=== PATIENT | female | born 1945 | race African-American/Black ===

== ENCOUNTER 2016-10-08 12:16 | Inpatient (IN) ==
--- NOTE | 2016-10-08 12:21 | Emergency Department Note ---
Disposition Clinical Impression: Asthma with exacerbation, Influenza A, Hypoxemia, Tachycardia, Elevated blood pressure reading, Diabetes, Frail elderly Disposition: Admitted As Inpatient Referrals: Bob Stokes Jr, MD [Primary Care Provider] - Forms: ED Satisfaction Letter General Adult HPI - General Chief complaint: ED Shortness of Breath/Dyspnea Stated complaint: YARA - History of Present Illness HPI Narrative: 70-year-old female reports emergency department complaining of difficulty in breathing. The patient has known history of asthma and does not usually require oxygen. The patient reports that she was at work and was exposed to irritant smokey smells on more than one occasion and had recurrent wheezing. The patient denies chest pain. She has had no abdominal pain vomiting or diarrhea. No leg swelling or pain coughing up blood or syncope. The patient has no history of CAD PE or cancer. No history of DVT or CHF. Patient has been taking her breathing medications but has not been fully effective. On arrival the patient's room air saturations were around 93%. The patient has had no urinary symptoms, no back pain. Ears no history of confusion, no unilateral arm weakness or numbness. No trouble walking talking hearing seeing or speaking, no rashes confusion or dysarthria. She has had a cough and some nasal congestion. No history of headache. She has a history of hypertension hyperlipidemia and diabetes. - Related Data Previous Rx's Medication Instructions Recorded Albuterol Neb [Proventil Neb] 2.5 mg IH Q4HR #90 vial.neb 03/07/15 Azithromycin [Zithromax] 250 mg PO DAILY #4 tablet 03/07/15 PredniSONE 10 mg PO DAILY #39 tablet 03/07/15 Allergies Allergy/AdvReac Type Severity Reaction Status Date / Time No Known Allergies Allergy Verified 03/06/15 20:35 All systems ED: reviewed and negative except as stated. Past Medical History - Past Medical History Medical history: Reports: asthma, diabetes, hyperlipidemia, hypertension Surgical history: Reports: cholecystectomy Psychiatric history: Reports: no psych history - Social History Smoking Status: Never smoker Smokeless Tobacco Status: No Alcohol use: Reports: none Drug use: Reports: none Physical Exam - General Limitations: no limitations General appearance: alert, in no apparent distress - Head Head exam: atraumatic, normocephalic, normal inspection - Eye Eye exam: Present: normal appearance, PERRL, EOMI - ENT ENT exam: normal exam, normal oropharynx, mucous membranes moist, TM's normal bilaterally, normal external ear exam - Neck Neck exam: Present: normal inspection, full ROM, trachea midline - Chest Chest inspection: Present: symmetric chest wall rise. Absent: tenderness - Respiratory Respiratory exam: Present: prolonged expiratory phase. Absent: respiratory distress, stridor, accessory muscle use - Cardiovascular Cardiovascular exam: Present: normal rhythm, tachycardia - Abdominal Exam Abdominal exam: Present: soft, Non-Tender, normal bowel sounds. Absent: tenderness, distention, guarding, rebound, rigidity, pulsatile mass - Extremities Exam Extremities exam: Present: normal inspection, full ROM, normal capillary refill. Absent: tenderness, pedal edema, joint swelling, calf tenderness - Expanded Lower Extremity Exam Neurovascular/Tendon exam: Absent: motor deficit, sensory deficit, tendon deficit, extremity cold to touch, pallor - Back Exam Back exam: Present: normal inspection, full ROM. Absent: tenderness, CVA tenderness (R), CVA tenderness (L), vertebral tenderness - Neurological Exam Neurological exam: Present: alert, oriented X3, CN II-XII intact. Absent: motor sensory deficit - Psychiatric Psychiatric exam: Present: normal affect, normal mood - Skin Skin exam: Present: warm, dry, intact, normal color. Absent: rash, cyanosis, diaphoresis, erythema, pallor, mottled Course Vital Signs Temperature 100.3 F H 10/08/16 12:17 Pulse Rate 112 10/08/16 12:17 Respiratory Rate 20 10/08/16 12:17 Blood Pressure 147/110 10/08/16 12:17 O2 Sat by Pulse Oximetry 93 L 10/08/16 12:17 Temperature 100.3 F H 10/08/16 12:17 Pulse Rate 106 10/08/16 12:23 Respiratory Rate 20 10/08/16 12:47 Blood Pressure 147/110 10/08/16 12:23 O2 Sat by Pulse Oximetry 97 10/08/16 12:47 Oxygen Delivery Oxygen Delivery Nasal Cannula Medical Decision Making - [facility] Narrative Medical decision making narrative: The patient is elderly with a history of asthma and diabetes. Her flu a test came back positive. She was given Solu-Medrol and a DuoNeb. Oxygen was also supplied. The patient's oxygen saturations on room air were 93%. She does not usually require oxygen. She was tachycardic with an element of tachypnea and persistent wheezing. A second DuoNeb was ordered. She has been taking her medication outpatient without relief. Based on the patient's apparent hypoxemia , tachycardia, age, acute influenza, comorbidities including diabetes, as well as a history of asthma and apparent outpatient failure on home therapy, I thought it would appropriate to admit the patient to the hospital. I discussed case with the hospitalist on-call who has accepted the patient to their care. The patient is currently stable pending admission. - Lab Data Lab results reviewed: Yes I reviewed the patient's lab results. Result diagrams: 10/08/16 12:41 10/08/16 12:41 Lab Results 10/08/16 10/08/16 10/08/16 Range/Units 12:41 12:41 12:41 WBC 9.7 (4.3-11.1) K/mcL RBC 4.33 (3.82-4.97) M/mcL Hgb 12.2 (11.5-15.4) g/dL Hct 36.7 (35.3-44.9) % MCV 84.8 (83.0-100.0) fL MCH 28.2 (28.0-33.3) pg MCHC 33.2 (31.6-35.5) g/dL RDW 12.6 (11.5-14.5) % Plt Count 299 (140-400) K/mcL MPV 9.5 (9.4-12.4) fL Immature Gran % 0.6 (0-4) % Seg Neutrophils % 70.8 % Lymphocytes % 14.9 % Monocytes % 11.0 % Eosinophils % 2.3 % Basophils % 0.4 % Neutrophils # 6.9 (1.6-8.9) K/mcL Lymphocytes # 1.5 (0.6-4.6) K/mcL Monocytes # 1.1 (0.0-1.3) K/mcL Eosinophils # 0.2 (0.0-0.6) K/mcL Basophils # 0.0 (0.0-0.2) K/mcL Immature Plt Fraction 2.4 (1.1-6.1) % PT (9.4-12.1) Seconds INR APTT (26.0-36.0) Seconds Sodium 138 (136-145) mEq/L Potassium 3.5 (3.5-4.5) mEq/L Chloride 101 (98-109) mEq/L Carbon Dioxide 26 (19-29) mEq/L BUN 14 (7-20) mg/dL Creatinine 0.96 (0.57-1.11) mg/dL Est GFR ( Amer) > 60 (> 60) Est GFR (Non-Af Amer) 57 L (> 60) BUN/Creatinine Ratio 15 (6-26) Glucose 151 H (70-99) mg/dL Calculated Osmolality 289 (280-300) Lactic Acid 1.2 (0.5-2.2) mmol/L Calcium 10.0 (8.6-10.8) mg/dL Total Bilirubin 0.5 (0.2-1.2) mg/dL Direct Bilirubin 0.2 (0.0-0.5) mg/dL Indirect Bilirubin 0.3 (0.0-1.2) mg/dL AST 23 (5-34) Units/L ALT 17 (0-55) Units/L Alkaline Phosphatase 63 (38-126) Units/L Troponin I (0-0.03) ng/mL C-Reactive Protein (Less than 5) mg/L B-Natriuretic Peptide (0-100) pg/mL Serum Total Protein 7.7 (6.0-8.3) g/dL Albumin 3.9 (3.5-5.0) g/dL Globulin 3.8 H (2.4-3.5) g/dL Albumin/Globulin Ratio 1.0 L (1.1-2.2) Urine Color (Yellow) Urine Clarity (Clear) Urine pH (5.0-8.0) pH Units Ur Specific [place] (1.010-1.025) Urine Protein (Neg-Trace) mg/dL Urine Glucose (UA) (Normal) mg/dL Urine Ketones (Negative) mg/dL Urine Blood (Negative) Urine Nitrite (Negative) Urine Bilirubin (Negative) Urine Urobilinogen (Normal) mg/dL Ur Leukocyte Esterase (Negative) Urine Microscopic RBC (0-3) per hpf Urine Microscopic WBC (0-3) per hpf Ur Squamous Epith Cells (None-Few) per lpf Urine Bacteria (None-Few) per hpf Hyaline Casts (None-Few) per lpf Ur Culture Indicated? (NO) 10/08/16 10/08/16 10/08/16 Range/Units 12:41 12:41 12:41 WBC (4.3-11.1) K/mcL RBC (3.82-4.97) M/mcL Hgb (11.5-15.4) g/dL Hct (35.3-44.9) % MCV (83.0-100.0) fL MCH (28.0-33.3) pg MCHC (31.6-35.5) g/dL RDW (11.5-14.5) % Plt Count (140-400) K/mcL MPV (9.4-12.4) fL Immature Gran % (0-4) % Seg Neutrophils % % Lymphocytes % % Monocytes % % Eosinophils % % Basophils % % Neutrophils # (1.6-8.9) K/mcL Lymphocytes # (0.6-4.6) K/mcL Monocytes # (0.0-1.3) K/mcL Eosinophils # (0.0-0.6) K/mcL Basophils # (0.0-0.2) K/mcL Immature Plt Fraction (1.1-6.1) % PT 12.9 H (9.4-12.1) Seconds INR 1.2 APTT 34.0 (26.0-36.0) Seconds Sodium (136-145) mEq/L Potassium (3.5-4.5) mEq/L Chloride (98-109) mEq/L Carbon Dioxide (19-29) mEq/L BUN (7-20) mg/dL Creatinine (0.57-1.11) mg/dL Est GFR ( Amer) (> 60) Est GFR (Non-Af Amer) (> 60) BUN/Creatinine Ratio (6-26) Glucose (70-99) mg/dL Calculated Osmolality (280-300) Lactic Acid (0.5-2.2) mmol/L Calcium (8.6-10.8) mg/dL Total Bilirubin (0.2-1.2) mg/dL Direct Bilirubin (0.0-0.5) mg/dL Indirect Bilirubin (0.0-1.2) mg/dL AST (5-34) Units/L ALT (0-55) Units/L Alkaline Phosphatase (38-126) Units/L Troponin I 0.00 (0-0.03) ng/mL C-Reactive Protein (Less than 5) mg/L B-Natriuretic Peptide 32 (0-100) pg/mL Serum Total Protein (6.0-8.3) g/dL Albumin (3.5-5.0) g/dL Globulin (2.4-3.5) g/dL Albumin/Globulin Ratio (1.1-2.2) Urine Color (Yellow) Urine Clarity (Clear) Urine pH (5.0-8.0) pH Units Ur Specific [place] (1.010-1.025) Urine Protein (Neg-Trace) mg/dL Urine Glucose (UA) (Normal) mg/dL Urine Ketones (Negative) mg/dL Urine Blood (Negative) Urine Nitrite (Negative) Urine Bilirubin (Negative) Urine Urobilinogen (Normal) mg/dL Ur Leukocyte Esterase (Negative) Urine Microscopic RBC (0-3) per hpf Urine Microscopic WBC (0-3) per hpf Ur Squamous Epith Cells (None-Few) per lpf Urine Bacteria (None-Few) per hpf Hyaline Casts (None-Few) per lpf Ur Culture Indicated? (NO) 10/08/16 10/08/16 Range/Units 12:41 13:42 WBC (4.3-11.1) K/mcL RBC (3.82-4.97) M/mcL Hgb (11.5-15.4) g/dL Hct (35.3-44.9) % MCV (83.0-100.0) fL MCH (28.0-33.3) pg MCHC (31.6-35.5) g/dL RDW (11.5-14.5) % Plt Count (140-400) K/mcL MPV (9.4-12.4) fL Immature Gran % (0-4) % Seg Neutrophils % % Lymphocytes % % Monocytes % % Eosinophils % % Basophils % % Neutrophils # (1.6-8.9) K/mcL Lymphocytes # (0.6-4.6) K/mcL Monocytes # (0.0-1.3) K/mcL Eosinophils # (0.0-0.6) K/mcL Basophils # (0.0-0.2) K/mcL Immature Plt Fraction (1.1-6.1) % PT (9.4-12.1) Seconds INR APTT (26.0-36.0) Seconds Sodium (136-145) mEq/L Potassium (3.5-4.5) mEq/L Chloride (98-109) mEq/L Carbon Dioxide (19-29) mEq/L BUN (7-20) mg/dL Creatinine (0.57-1.11) mg/dL Est GFR ( Amer) (> 60) Est GFR (Non-Af Amer) (> 60) BUN/Creatinine Ratio (6-26) Glucose (70-99) mg/dL Calculated Osmolality (280-300) Lactic Acid (0.5-2.2) mmol/L Calcium (8.6-10.8) mg/dL Total Bilirubin (0.2-1.2) mg/dL Direct Bilirubin (0.0-0.5) mg/dL Indirect Bilirubin (0.0-1.2) mg/dL AST (5-34) Units/L ALT (0-55) Units/L Alkaline Phosphatase (38-126) Units/L Troponin I (0-0.03) ng/mL C-Reactive Protein 36 H (Less than 5) mg/L B-Natriuretic Peptide (0-100) pg/mL Serum Total Protein (6.0-8.3) g/dL Albumin (3.5-5.0) g/dL Globulin (2.4-3.5) g/dL Albumin/Globulin Ratio (1.1-2.2) Urine Color Yellow (Yellow) Urine Clarity Clear (Clear) Urine pH 6.0 (5.0-8.0) pH Units Ur Specific [place] 1.022 (1.010-1.025) Urine Protein 100 H (Neg-Trace) mg/dL Urine Glucose (UA) Normal (Normal) mg/dL Urine Ketones Negative (Negative) mg/dL Urine Blood Small H (Negative) Urine Nitrite Negative (Negative) Urine Bilirubin Negative (Negative) Urine Urobilinogen Normal (Normal) mg/dL Ur Leukocyte Esterase Negative (Negative) Urine Microscopic RBC 0-3 (0-3) per hpf Urine Microscopic WBC 0-3 (0-3) per hpf Ur Squamous Epith Cells Many H (None-Few) per lpf Urine Bacteria None Seen (None-Few) per hpf Hyaline Casts None Seen (None-Few) per lpf Ur Culture Indicated? NO (NO) - Radiology Data Radiology results reviewed: Yes I reviewed the patient's radiology results.
[2016-10-08] MEDS ORDERED: Ipratropium/Albuterol Neb 3 ML IH ONE ×2 (12:33→14:00)
[2016-10-08] MEDS ORDERED: 0.9 % Sodium Chloride 1,000 ML IVC ONE (12:34)
[2016-10-08] MEDS ORDERED: methylPREDNISolone 125 MG/2 ML VIAL IVP ONE (12:34)
[2016-10-08 12:50] LABS: Basophils % 0.4 %; Eosinophils # 0.2 K/mcL (0.0-0.6); Eosinophils % 2.3 %; Hematocrit 36.7 % (35.3-44.9); Hemoglobin 12.2 g/dL (11.5-15.4); Immature Granulocytes % 0.6 % (0-4); Immature Platelets 2.4 % (1.1-6.1); Lymphocytes # 1.5 K/mcL (0.6-4.6); Lymphocytes % 14.9 %; Mean Corpuscular HGB Conc 33.2 g/dL (31.6-35.5); Mean Corpuscular Hemoglobin 28.2 pg (28.0-33.3); Mean Corpuscular Volume 84.8 fL (83.0-100.0); Mean Platelet Volume 9.5 fL (9.4-12.4); Monocytes # 1.1 K/mcL (0.0-1.3); Neutrophils # 6.9 K/mcL (1.6-8.9); Platelet Count 299 K/mcL (140-400); Red Blood Count 4.33 M/mcL (3.82-4.97); Red Cell Distribution Width 12.6 % (11.5-14.5); Segmented Neutrophils % 70.8 %
[2016-10-08 12:56] LABS: INR 1.2; Prothrombin Time 12.9 Seconds (9.4-12.1)
[2016-10-08 13:11] LABS: Alanine Aminotransferase 17 Units/L (0-55); Albumin 3.9 g/dL (3.5-5.0); Alkaline Phosphatase 63 Units/L (38-126); Aspartate Amino Transferase 23 Units/L (5-34); BUN/Creatinine Ratio 15 (6-26); Bilirubin,Direct 0.2 mg/dL (0.0-0.5); Bilirubin,Indirect 0.3 mg/dL (0.0-1.2); Bilirubin,Total 0.5 mg/dL (0.2-1.2); Blood Urea Nitrogen 14 mg/dL (7-20); Carbon Dioxide 26 mEq/L (19-29); Chloride 101 mEq/L (98-109); Globulin 3.8 g/dL (2.4-3.5); Glucose 151 mg/dL (70-99); Osmolality,Calculated 289 (280-300); Potassium 3.5 mEq/L (3.5-4.5); Sodium 138 mEq/L (136-145); Total Protein 7.7 g/dL (6.0-8.3); eGFR For African Americans > 60 (> 60); eGFR For Non-African Americans 57 (> 60)
[2016-10-08 14:03] LABS: Bilirubin,Urine Negative (Negative); Blood,Urine Small (Negative); Clarity,Urine Clear (Clear); Color,Urine Yellow (Yellow); Glucose,Urine (UA) Normal (Normal); Ketones,Urine Negative (Negative); Leukocyte Esterase,Urine Negative (Negative); Nitrite,Urine Negative (Negative); Protein,Urine 100 mg/dL (Neg-Trace); Specific Gravity,Urine 1.022 (1.010-1.025); Urobilinogen,Urine Normal (Normal)
[2016-10-08 14:05] LABS: Bacteria,Urine None Seen per hpf (None-Few); Hyaline Casts,Urine None Seen per lpf (None-Few); RBC,Urine 0-3 per hpf (0-3); Squamous Epithelial Cell,Urine Many per lpf (None-Few); WBC,Urine 0-3 per hpf (0-3)
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
[2016-10-08] MEDS ORDERED: Naloxone 0.4 MG/ML INJ IVP PRN (16:16)
[2016-10-08] MEDS ORDERED: *HR* LORazepam 0.5 MG TABLET PO PRN (16:19)
[2016-10-08] MEDS ORDERED: *HR* Dextrose 50 % in Water (Syg) 50 ML SYRINGE IVP PRN (16:21)
[2016-10-08] MEDS ORDERED: Dextrose Gel 15 GM PO PRN ×2 (16:21)
[2016-10-08] MEDS ORDERED: D5% in Water 1,000 ML IV PRN (16:21)
[2016-10-08] MEDS ORDERED: Albuterol 2.5 MG/3 ML NEBULIZER IH PRN (16:22)
[2016-10-08] MEDS: Insulin LISPRO 300 UNITS/3 ML VIAL SQ SCH ×2 (17:11→21:07)
[2016-10-08] MEDS ORDERED: Oseltamivir 6 MG/ML UDC PO SCH (21:00)
[2016-10-08] MEDS: Ipratropium/Albuterol Neb 3 ML IH SCH (21:20)
[2016-10-08] MEDS: Budesonide/Formoterol 160/4.5 MDI IH SCH (21:21)
[2016-10-08] MEDS ORDERED: Budesonide/Formoterol 160/4.5 MDI IH SCH (22:00)
[2016-10-09] MEDS: Ipratropium/Albuterol Neb 3 ML IH SCH ×4 (03:55→20:58)
[2016-10-09 05:47] LABS: Calcium 9.5 mg/dL (8.6-10.8); Potassium 3.9 mEq/L (3.5-4.5)
[2016-10-09 05:48] LABS: Basophils % 0.2 %; Eosinophils % 0.2 %; Hematocrit 35.7 % (35.3-44.9); Hemoglobin 11.6 g/dL (11.5-15.4); Immature Granulocytes % 0.6 % (0-4); Lymphocytes # 0.9 K/mcL (0.6-4.6); Lymphocytes % 13.3 %; Mean Corpuscular HGB Conc 32.5 g/dL (31.6-35.5); Mean Corpuscular Hemoglobin 27.6 pg (28.0-33.3); Mean Corpuscular Volume 84.8 fL (83.0-100.0); Mean Platelet Volume 10.1 fL (9.4-12.4); Monocytes # 0.3 K/mcL (0.0-1.3); Monocytes % 4.2 %; Neutrophils # 5.4 K/mcL (1.6-8.9); Platelet Count 289 K/mcL (140-400); Red Blood Count 4.21 M/mcL (3.82-4.97); Red Cell Distribution Width 12.5 % (11.5-14.5); Segmented Neutrophils % 81.5 %
[2016-10-09] MEDS: Insulin LISPRO 300 UNITS/3 ML VIAL SQ SCH ×4 (08:20→20:17)
[2016-10-09] MEDS: Fluticasone Propionate Nasal 50 MCG/SPRAY BOTTLE NS SCH (08:21)
[2016-10-09] MEDS: amLODIPine 5 MG TABLET PO SCH (08:21)
[2016-10-09] MEDS: Loratadine 10 MG TABLET PO SCH (08:21)
[2016-10-09] MEDS: predniSONE 20 MG TABLET PO SCH (08:21)
[2016-10-09] MEDS: Budesonide/Formoterol 160/4.5 MDI IH SCH ×2 (09:55→20:59)
--- NOTE | 2016-10-09 12:10 | Electrocardiograph Report ---
[facility] Test Date: 2016-10-08 Pat Name: Cristy Costello Department: 102 Room: 3B31 Gender: F [employer]: : 1945 Requested By: Andi Segal Order Number: [id number] Reading MD: Jorge Mercado MD Measurements Intervals [place] Rate: 105 P: 34 SD: 182 QRS: 11 QRSD: 93 T: 63 QT: 337 QTc: 398 Interpretive Statements SINUS TACHYCARDIA ABNORMAL RHYTHM ECG Electronically Signed On 10-09-2016 12:08:48 EDT by Jorge Mercado MD
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
[2016-10-09] MEDS: *HR* Heparin 5,000 UNIT/ML VIAL SQ SCH ×2 (17:08→22:45)
[2016-10-09] MEDS: Oseltamivir Phosphate 30 MG CAPSULE PO SCH (20:16)
[2016-10-10] MEDS: Ipratropium/Albuterol Neb 3 ML IH SCH ×4 (03:55→22:04)
[2016-10-10 05:10] LABS: Hematocrit 34.5 % (35.3-44.9); Hemoglobin 11.5 g/dL (11.5-15.4); Immature Granulocytes % 0.7 % (0-4); Lymphocytes % 28.9 %; Mean Corpuscular HGB Conc 33.3 g/dL (31.6-35.5); Mean Corpuscular Hemoglobin 28.4 pg (28.0-33.3); Mean Corpuscular Volume 85.2 fL (83.0-100.0); Mean Platelet Volume 10.4 fL (9.4-12.4); Monocytes % 7.8 %; Platelet Count 271 K/mcL (140-400); Red Blood Count 4.05 M/mcL (3.82-4.97); Red Cell Distribution Width 12.5 % (11.5-14.5); Segmented Neutrophils % 62.4 %
[2016-10-10 05:11] LABS: Basophils % 0.1 %; Eosinophils % 0.1 %; Lymphocytes # 2.6 K/mcL (0.6-4.6); Monocytes # 0.7 K/mcL (0.0-1.3); Neutrophils # 5.7 K/mcL (1.6-8.9)
[2016-10-10 05:21] LABS: Hemoglobin A1C 6.9 %
[2016-10-10 05:24] LABS: BUN/Creatinine Ratio 30 (6-26); Blood Urea Nitrogen 29 mg/dL (7-20); Calcium 9.2 mg/dL (8.6-10.8); Carbon Dioxide 26 mEq/L (19-29); Chloride 104 mEq/L (98-109); Glucose 104 mg/dL (70-99); Osmolality,Calculated 296 (280-300); Potassium 3.5 mEq/L (3.5-4.5); Sodium 140 mEq/L (136-145); eGFR For African Americans > 60 (> 60); eGFR For Non-African Americans 56 (> 60)
[2016-10-10] MEDS: *HR* Heparin 5,000 UNIT/ML VIAL SQ SCH ×3 (06:05→21:40)
[2016-10-10] MEDS: Insulin LISPRO 300 UNITS/3 ML VIAL SQ SCH ×4 (07:48→21:41)
[2016-10-10] MEDS: amLODIPine 5 MG TABLET PO SCH (07:56)
[2016-10-10] MEDS: predniSONE 20 MG TABLET PO SCH (07:56)
[2016-10-10] MEDS: Loratadine 10 MG TABLET PO SCH (07:57)
[2016-10-10] MEDS: Oseltamivir Phosphate 30 MG CAPSULE PO SCH ×2 (07:57→21:40)
[2016-10-10] MEDS: Fluticasone Propionate Nasal 50 MCG/SPRAY BOTTLE NS SCH (08:01)
[2016-10-10] MEDS: Budesonide/Formoterol 160/4.5 MDI IH SCH ×2 (09:52→22:04)
[2016-10-10] MEDS ORDERED: GuaiFENesin/Codeine Oral Soln 5 ML UDC PO PRN (09:56)
[2016-10-10] MEDS: Artificial Tears SOLN 15 ML BOTTLE BOTH EYES SCH ×3 (13:42→19:59)
--- NOTE | 2016-10-10 16:31 | Internal Med Progress Note ---
Date of Encounter: 10/10/16 Time of Encounter: 09:00 - Assessment and plan (1) Asthma with exacerbation Current Visit: Yes Status: Acute Assessment and plan: Pt states that she does not feel better today. Pt has never had to use oxygen at home before, however, now she has to have 02 to maintain sats. Pt took her 02 off while I was in the room and desatted into the mid 80's. Pt wheezing throughout and now reports productive cough. She has been afebrile and has no leukocytosis. Most likely exacerbation from irritating exposure and virus. Will continue to monitor pt and labs. Prednisone Albuterol nebs q2h prn Duonebs Albuterol nebs prn Continuous pulse ox Monitor labs Robitussin with codeine cough syrup Qualifiers: Asthma severity: severe persistent Qualified Code(s): J45.51 - Severe persistent asthma with (acute) exacerbation (2) Influenza A Current Visit: Yes Status: Acute Assessment and plan: Continue tamiflu. Plan as above. (3) Hypoxemia Current Visit: Yes Status: Acute Assessment and plan: Pt now is requiring 02 to maintain sats. Without 02, sats in the mid 80s. 2L/ nc. Secondary to flu A and asthma exacerbation. Plan as above. (4) Tachycardia Current Visit: Yes Status: Resolved Assessment and plan: Pt has not been tachycardic today. Resolved. (5) Diabetes Current Visit: Yes Status: Chronic Assessment and plan: A1c 6.9%. Pt blood glucose remarkably in control for being on po steroids. Sliding scale insulin Accucheck achs Diabetic diet. Qualifiers: Diabetes mellitus type: type 2 Diabetes mellitus complication status: without complication Diabetes mellitus black top roller insulin use: without fdc use Qualified Code(s): E11.9 - Type 2 diabetes mellitus without complications (6) DVT prophylaxis Current Visit: Yes Status: Acute Assessment and plan: Bedrest with BRP Heparin SQ ROSI hose. (7) Chest pain Current Visit: Yes Status: Acute Assessment and plan: Pt still having chest wall pain from cough, chest is tender to palpation and pain increases with deep inspiration and cough. Telemetry Continuous pulse ox Monitor labs Monitor VS Qualifiers: Chest pain type: chest pain on breathing Qualified Code(s): R07.1 - Chest pain on breathing - Time Spent With Patient less than 15 minutes - Subjective Interval history: Pt states that she does not feel better yet today. States that her ribs hurt and she feels fatigued. Pt states that now cough is productive. - Constitutional Vitals: Temp Pulse Resp BP Pulse Ox 98.1 F 66 16 116/68 97 10/10/16 15:18 10/10/16 15:18 10/10/16 15:18 10/10/16 15:18 10/10/16 15:18 General appearance: Present: A&O X 3, pleasant, answers questions appropriately Exam: moderate distress - Head Head exam: Present: atraumatic, normal inspection - Eye Eye exam: Present: normal appearance, conjuntiva pink - ENT ENT exam: Present: mucous membranes moist, normal exam - Neck Neck exam general surgery: Present: normal inspection, trachea midline. Absent : lymphadenopathy, tenderness - Respiratory Respiratory exam: Present: chest wall tenderness, rhonchi, wheezes - Cardiovascular Cardiovascular exam: Present: RRR, +S1, +S2 - GI/Abdominal GI/Abdominal exam: Present: normal bowel sounds, soft. Absent: tenderness - Extremities Exam Extremities exam: Present: full ROM, normal capillary refill, normal inspection. Absent: tenderness - Neurological Exam Neurological exam: Present: alert, oriented X3. Absent: facial droop, speech deficit Internal Medicine: Result - Labs CBC & Chem 7: 10/10/16 04:42 10/10/16 04:42 Labs: Short CBC 10/10/16 Range/Units 04:42 WBC 9.1 (4.3-11.1) K/mcL Hgb 11.5 (11.5-15.4) g/dL Hct 34.5 L (35.3-44.9) % Plt Count 271 (140-400) K/mcL Neutrophils # 5.7 (1.6-8.9) K/mcL BMP 10/10/16 04:42 Sodium 140 Potassium 3.5 Chloride 104 Carbon Dioxide 26 BUN 29 H Creatinine 0.98 Glucose 104 H Calcium 9.2 - ABG Interpretation ABG results: PT/INR, D-dimer PT 12.9 Seconds (9.4-12.1) H 10/08/16 12:41 - VTE Documentation of Mechanical Device: Graduated compression elastic hosiery Consult Discharge Plan - Plan Referrals: Bob Stokes Jr, MD [Primary Care Provider] - 10/17/16 2:30 pm
--- NOTE | 2016-10-10 16:32 | Electrocardiograph Report ---
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
--- NOTE | 2016-10-10 17:01 | Electrocardiograph Report ---
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
[2016-10-11] MEDS: Ipratropium/Albuterol Neb 3 ML IH SCH ×4 (03:34→22:47)
[2016-10-11 05:04] LABS: Basophils % 0.1 %; Eosinophils % 0.1 %; Hematocrit 34.6 % (35.3-44.9); Hemoglobin 11.6 g/dL (11.5-15.4); Immature Granulocytes % 0.9 % (0-4); Lymphocytes # 3.6 K/mcL (0.6-4.6); Lymphocytes % 33.9 %; Mean Corpuscular HGB Conc 33.5 g/dL (31.6-35.5); Mean Corpuscular Hemoglobin 28.4 pg (28.0-33.3); Mean Corpuscular Volume 84.6 fL (83.0-100.0); Mean Platelet Volume 10.4 fL (9.4-12.4); Monocytes # 0.8 K/mcL (0.0-1.3); Monocytes % 7.2 %; Neutrophils # 6.1 K/mcL (1.6-8.9); Nucleated Red Blood Cells 0.2 /100 WBC (0); Platelet Count 280 K/mcL (140-400); Red Blood Count 4.09 M/mcL (3.82-4.97); Red Cell Distribution Width 12.4 % (11.5-14.5); Segmented Neutrophils % 57.8 %
[2016-10-11] MEDS: *HR* Heparin 5,000 UNIT/ML VIAL SQ SCH ×3 (05:09→21:46)
[2016-10-11 05:24] LABS: BUN/Creatinine Ratio 31 (6-26); Blood Urea Nitrogen 29 mg/dL (7-20); Calcium 9.1 mg/dL (8.6-10.8); Carbon Dioxide 25 mEq/L (19-29); Chloride 105 mEq/L (98-109); Glucose 116 mg/dL (70-99); Osmolality,Calculated 297 (280-300); Potassium 3.5 mEq/L (3.5-4.5); Sodium 140 mEq/L (136-145); eGFR For African Americans > 60 (> 60); eGFR For Non-African Americans 58 (> 60)
[2016-10-11] MEDS: Insulin LISPRO 300 UNITS/3 ML VIAL SQ SCH ×4 (08:16→21:39)
[2016-10-11] MEDS: predniSONE 20 MG TABLET PO SCH (09:18)
[2016-10-11] MEDS: amLODIPine 5 MG TABLET PO SCH (09:18)
[2016-10-11] MEDS: Oseltamivir Phosphate 30 MG CAPSULE PO SCH ×2 (09:19→21:38)
[2016-10-11] MEDS: Loratadine 10 MG TABLET PO SCH (09:19)
[2016-10-11] MEDS: Fluticasone Propionate Nasal 50 MCG/SPRAY BOTTLE NS SCH (09:20)
[2016-10-11] MEDS: Artificial Tears SOLN 15 ML BOTTLE BOTH EYES SCH ×4 (09:20→21:38)
[2016-10-11] MEDS: Budesonide/Formoterol 160/4.5 MDI IH SCH ×2 (11:03→22:47)
[2016-10-11] MEDS ORDERED: Acetaminophen 325 MG TABLET PO PRN (11:48)
--- NOTE | 2016-10-11 14:40 | Internal Med Progress Note ---
Date of Encounter: 10/11/16 Time of Encounter: 13:00 - Assessment and plan (1) Asthma with exacerbation Current Visit: Yes Status: Acute Assessment and plan: Patient appears to be significantly better than she has the past 2 days. She is sitting up in the chair at the bedside. She says that she has been taking her oxygen off and her sats are staying above 90%. Qualifiers: Asthma severity: severe persistent Qualified Code(s): J45.51 - Severe persistent asthma with (acute) exacerbation (2) Influenza A Current Visit: Yes Status: Acute Assessment and plan: Continue Tamiflu Treat symptoms Monitor labs and vitals (3) Hypoxemia Current Visit: Yes Status: Acute Assessment and plan: Patient states that today she has been taking her oxygen off and her sats have been staying above 90%. I have ordered a 6 minute walk with nursing staff to assess need for oxygen at home. Most likely patient will not qualify today. 2 by nasal cannula to maintain sats greater than 92% Continuous pulse ox (4) Tachycardia Current Visit: Yes Status: Resolved Assessment and plan: Pt has not been tachycardic today. Resolved. (5) Diabetes Current Visit: Yes Status: Chronic Assessment and plan: Chronic. Stable. Accu-Cheks have been slightly elevated, however, patient is on steroids.. Sliding scale insulin Accucheck achs Diabetic diet. Qualifiers: Diabetes mellitus type: type 2 Diabetes mellitus complication status: without complication Diabetes mellitus intermediate project manager insulin use: without intermediate project manager use Qualified Code(s): E11.9 - Type 2 diabetes mellitus without complications (6) DVT prophylaxis Current Visit: Yes Status: Acute Assessment and plan: Bedrest with BRP Heparin SQ ROSI hose. (7) Chest pain Current Visit: Yes Status: Acute Assessment and plan: Patient denies chest pain today, however she does say that her ribs are sore from coughing. We will continue to monitor patient, labs, and vital signs. Qualifiers: Chest pain type: chest pain on breathing Qualified Code(s): R07.1 - Chest pain on breathing - Subjective Interval history: Today patient states that she feels better, she was actually able to get up and sit in the chair today on her own. Patient states that she feels some better, but verbalizes concern that she cannot go home because she will be alone. She states that she cares for her primarily, and she will not have help at home to care for him while also caring for herself. She states that her son will be able to help both of them tomorrow and Thursday. - Constitutional Vitals: Temp Pulse Resp BP Pulse Ox 98.2 F 62 15 105/52 98 10/11/16 10:41 10/11/16 10:41 10/11/16 11:07 10/11/16 10:41 10/11/16 11:07 General appearance: Present: cooperative, A&O X 3, pleasant, answers questions appropriately - Head Head exam: Present: normal inspection - Eye Eye exam: Present: normal appearance, conjuntiva pink - ENT ENT exam: Present: mucous membranes moist, normal exam - Neck Neck exam general surgery: Present: normal inspection. Absent: lymphadenopathy , tenderness - Respiratory Respiratory exam: Present: decreased breath sounds, rhonchi, wheezes. Absent: chest wall tenderness Additional comments: Lungs sound better today than the past 2 days. There is now faint wheezing in bilateral bases rhonchi that clear with cough throughout area - Cardiovascular Cardiovascular exam: Present: RRR, +S1, +S2 - Expanded Cardiovascular Exam Peripheral pulses: 2+: Dorsalis Pedis (L) PM, Dorsalis Pedis (R) PM - GI/Abdominal GI/Abdominal exam: Present: soft. Absent: hepatomegaly, mass, tenderness - Extremities Exam Extremities exam: Present: full ROM, normal capillary refill, normal inspection , warm, radial pulses palpable and symetrical. Absent: joint swelling, pedal edema, tenderness - Neurological Exam Neurological exam: Present: abnormal gait, oriented X3, strengths equal and symetr throughout Internal Medicine: Result - Labs CBC & Chem 7: 10/11/16 04:23 10/11/16 04:23 Labs: Short CBC 10/11/16 Range/Units 04:23 WBC 10.6 (4.3-11.1) K/mcL Hgb 11.6 (11.5-15.4) g/dL Hct 34.6 L (35.3-44.9) % Plt Count 280 (140-400) K/mcL Neutrophils # 6.1 (1.6-8.9) K/mcL BMP 10/11/16 04:23 Sodium 140 Potassium 3.5 Chloride 105 Carbon Dioxide 25 BUN 29 H Creatinine 0.95 Glucose 116 H Calcium 9.1 - ABG Interpretation ABG results: PT/INR, D-dimer PT 12.9 Seconds (9.4-12.1) H 10/08/16 12:41 - VTE Documentation of Mechanical Device: Graduated compression elastic hosiery Consult Discharge Plan - Plan Referrals: Bob Stokes Jr, MD [Primary Care Provider] - 10/17/16 2:30 pm
[2016-10-12 04:26] LABS: Basophils % 0.2 %; Eosinophils % 0.1 %; Hematocrit 37.1 % (35.3-44.9); Immature Granulocytes % 1.3 % (0-4); Lymphocytes # 3.6 K/mcL (0.6-4.6); Lymphocytes % 28.1 %; Mean Corpuscular HGB Conc 32.3 g/dL (31.6-35.5); Mean Corpuscular Hemoglobin 27.3 pg (28.0-33.3); Mean Corpuscular Volume 84.3 fL (83.0-100.0); Mean Platelet Volume 10.2 fL (9.4-12.4); Monocytes # 0.8 K/mcL (0.0-1.3); Monocytes % 6.4 %; Neutrophils # 8.2 K/mcL (1.6-8.9); Platelet Count 324 K/mcL (140-400); Red Cell Distribution Width 12.3 % (11.5-14.5); Segmented Neutrophils % 63.9 %
[2016-10-12] MEDS: Ipratropium/Albuterol Neb 3 ML IH SCH ×2 (04:40→10:13)
[2016-10-12 04:52] LABS: BUN/Creatinine Ratio 30 (6-26); Blood Urea Nitrogen 30 mg/dL (7-20); Calcium 9.6 mg/dL (8.6-10.8); Carbon Dioxide 25 mEq/L (19-29); Chloride 104 mEq/L (98-109); Glucose 147 mg/dL (70-99); Osmolality,Calculated 299 (280-300); Sodium 140 mEq/L (136-145); eGFR For African Americans > 60 (> 60); eGFR For Non-African Americans 55 (> 60)
[2016-10-12 05:01] LABS: Potassium 3.4 mEq/L (3.5-4.5)
[2016-10-12] MEDS: *HR* Heparin 5,000 UNIT/ML VIAL SQ SCH (06:18)
[2016-10-12 08:04] VITALS: BP 110/64
[2016-10-12] MEDS: Insulin LISPRO 300 UNITS/3 ML VIAL SQ SCH ×2 (08:57→12:51)
[2016-10-12] MEDS: predniSONE 20 MG TABLET PO SCH (09:01)
[2016-10-12] MEDS: Loratadine 10 MG TABLET PO SCH (09:02)
[2016-10-12] MEDS: amLODIPine 5 MG TABLET PO SCH (09:02)
[2016-10-12] MEDS: Oseltamivir Phosphate 30 MG CAPSULE PO SCH (09:02)
[2016-10-12] MEDS: Artificial Tears SOLN 15 ML BOTTLE BOTH EYES SCH ×2 (09:03→12:49)
[2016-10-12] MEDS: Fluticasone Propionate Nasal 50 MCG/SPRAY BOTTLE NS SCH (09:03)
[2016-10-12] MEDS: Budesonide/Formoterol 160/4.5 MDI IH SCH (10:13)
--- NOTE | 2016-10-12 12:38 | Discharge Summary ---
Date of Encounter: 10/12/16 Time of Encounter: 11:30 - Discharge Medications Prescriptions: Ipratropium/Albuterol Neb [Duoneb] 3 ml IH Q4HR 30 Days Albuterol Sulfate [Ventolin Hfa] 2 puff IH Q4H PRN #2 hfa.aer.ad PRN Reason: Shortness Of Breath/Wheezing Fluticasone/Salmeterol [Advair 500-50 Diskus] 1 each IH BID #1 blst.w.dev Oseltamivir Phosphate [Tamiflu] 30 mg PO BID #7 capsule PredniSONE 20 mg PO AD #9 tablet Home Medications: Amlodipine Besylate 10 mg PO DAILY 10/08/16 [History] Cetirizine HCl [Zyrtec] 10 mg PO DAILY 10/08/16 [History] Fluticasone Propionate Nasal [Flonase] 50 mcg NS DAILY 10/08/16 [History] Ipratropium [place] 1 spray NS QAM 10/08/16 [History] LORazepam [Ativan] 0.5 mg PO BID PRN 10/08/16 [History] Metformin [Glucophage] 500 mg PO BIDWM 10/08/16 [History] Montelukast [Singulair] 10 mg PO HS 10/08/16 [History] Albuterol Sulfate [Ventolin Hfa] 2 puff IH Q4H PRN #2 hfa.aer.ad 10/12/16 [Rx] Fluticasone/Salmeterol [Advair 500-50 Diskus] 1 each IH BID #1 blst.w.dev [Rx] GuaiFENesin/Dextromethorphan [Robitussin/Dm] 10 ml PO Q4HR PRN #0 udc 10/12/16 [ Rx] Ipratropium/Albuterol Neb [Duoneb] 3 ml IH Q4HR 30 Days 10/12/16 [Rx] Oseltamivir Phosphate [Tamiflu] 30 mg PO BID #7 capsule 10/12/16 [Rx] PredniSONE 20 mg PO AD #9 tablet 10/12/16 [Rx] Allergies/Adverse Reactions: Allergies No Known Allergies Allergy (Verified 03/06/15 20:35) Date of admission: 10/10/16 17:28 Primary care physician: Bob Stokes Jr, MD - Patient Status Disposition: Home, Self-Care Condition: Good Functional capacity at discharge: independent ambulation Overall status at discharge: patient is progressing back to baseline - Discharge Instructions Instructions: Chest Pain (DC), Asthma (DC), Influenza (DC) Follow Up With: Bob Stokes Jr, MD [Primary Care Provider] - 10/17/16 2:30 pm Forms: Work/School Release Additional Instructions: Follow-up appointments: If there is not an appointment listed below, please call your physician and schedule a follow-up appointment. If you have congestive heart failure and your symptoms return, make an appointment with your physician. Medication List: Carry an up to date list of medications you are taking at all time. We have given you an updated medication list including any new medications that you have been prescribed. Please provide that list to your primary provider Symptoms: If your condition changes or you experience any of the following symptoms, notify your physician immediately: Unusual or worsening pain, fever, persistent nausea and vomiting, bleeding, increase in swelling (especially in your legs), sudden weight gain, extreme dizziness, chest pain, increased drainage or redness from a wound or incision. Go to the emergency department if you experience a problem with breathing. Weights: If you have a history of swelling or shortness of breath, weigh yourself daily and notify your physician if you have a weight gain of two or more pounds in one day or 5 or more pounds in a week. If you experience any of the warning signs for stroke: Sudden numbness or weakness of the face, arm or leg; especially on one side of the body, sudden confusion, trouble speaking or understanding, sudden trouble seeing in one or both eyes, sudden trouble walking, dizziness, loss of balance or coordination, sudden sever headache with no cause; Call 911 or go to the emergency room. Stroke is a medical emergency. Some risk factors for stroke: Age, cigarette smoking, diabetes, excessive alcohol consumption, family history , high blood pressure, overweight, physical inactivity, prior stroke, heart attack, diagnosis of carotid artery stenosis or other artery disease. If you smoke, STOP: Smoking or tobacco use significantly increases your risk of heart and lung disease. Your chance of disease greatly increases if you continue to smoke. For more information, call the [employer] tobacco quit line for smoking cessation QUIT-NOW ( ) - Diet and Activity Activity: resume usual activities as tolerated Diet: diabetic diet, low fat, low cholesterol, low salt diet Interval History: patient still has some shortness of breath and productive cough of yellowish sputum. all symptoms are better compared to admission. Hospital course: Ms. Costello is a 70 year old female with history of severe persistent asthma and diabetes who presented with a chief complaint of productive cough and shortness of breath. She has been dealing with upper respiratory infections for the past 2 months. Influenza test type a was positive. Chest x-ray showed no acute process. She was treated for acute asthma exacerbation triggered by influenza infection. No signs of pneumonia. She was started on Tamiflu, glucocorticoid steroids, Symbicort, albuterol and Atrovent immunizations every 4 hours, and singular with clinical improvement of her symptoms. PLAN: Continue Tamiflu for a total of 7 days. Check blood pressure daily. - Time Spent with Patient Total time spent providing and/or coordinating discharge services: - Constitutional Vitals: Temp Pulse Resp BP Pulse Ox 97.8 F 58 16 110/64 97 10/12/16 08:03 10/12/16 08:03 10/12/16 08:03 10/12/16 08:03 10/12/16 08:03 General appearance: Present: cooperative, A&O X 3, pleasant, no acute distress, answers questions appropriately - Eye Eye exam: Present: PERRL, sclera anicteric - Neck Neck exam general surgery: Present: supple, trachea midline. Absent: lymphadenopathy - Respiratory Respiratory exam: Present: wheezes (good air entry. mild wheezes at lower lung howard). Absent: rales - Cardiovascular Cardiovascular exam: Present: RRR - GI/Abdominal GI/Abdominal exam: Present: normal bowel sounds, soft. Absent: distended, tenderness - Extremities Exam Extremities exam: Absent: pedal edema - Back Exam Back exam: Absent: CVA tenderness (L), CVA tenderness (R) - Neurological Exam Neurological exam: Present: alert, oriented X3, no focal deficits, strengths equal and symetr throughout. Absent: facial droop, speech deficit - Skin Skin exam: Absent: rash - VTE Documentation of Mechanical Device: Graduated compression elastic hosiery
== END 2016-10-12 14:40 | disposition home or self-care (01) | DRG 194 ==
LOC: EMEROO 12:16 → 3BNU 12:16 → SUATTDRO 10-10 17:28
PROVIDERS: ADMIT Internal Medicine; ATTEND Internal Medicine

== ENCOUNTER 2018-02-17 11:41 | Observation (INO) ==
[2018-02-17] MEDS ORDERED: Ipratropium/Albuterol Neb 3 ML IH ONE (11:50)
[2018-02-17] MEDS ORDERED: predniSONE 20 MG TABLET PO ONE (11:50)
--- NOTE | 2018-02-17 12:22 | Emergency Department Note ---
Disposition Clinical Impression: Asthma exacerbation Qualifiers: Asthma severity: moderate Asthma persistence: unspecified Qualified Code(s): J45.901 - Unspecified asthma with (acute) exacerbation Disposition: Admitted As Inpatient Condition: Undetermined Referrals: Bob Stokes Jr, MD [Primary Care Provider] - Forms: ED Satisfaction Letter Time of Disposition: 13:34 SOB HPI - General Chief Complaint: ED Shortness of Breath/Dyspnea Stated Complaint: YARA/cough Time Seen by Provider: 02/17/18 11:46 Source: patient Mode of arrival: ambulatory Limitations: no limitations Nursing Notes Reviewed: Yes Vital Signs Reviewed: Yes - History of Present Illness 72-year-old female with history of asthma, arrives to the emergency department complaining of shortness of breath. Patient states that roughly 4 days ago she started complaining of an upper respiratory infection like symptoms with nasal congestion and cough. Patient states that she started having some shortness of breath at that time as well but is progressively worsened. The patient has excessive history of asthma and states that she has been using her albuterol nebulizer every hour now at this point she states it was helping but it has continued. Patient denies any chest pain but does not to some chest pressure which is sore to her previous asthma attacks in the past. Patient denies any fevers, chills, abdominal pain nausea, vomiting. Patient is in mild respiratory distress upon evaluation the room. She was placed on oxygen by myself on evaluation. - Related Data Home Medications Medication Instructions Recorded Confirmed Amlodipine Besylate 10 mg PO DAILY 10/08/16 06/02/17 Cetirizine HCl [Zyrtec] 10 mg PO DAILY 10/08/16 06/02/17 Fluticasone Propionate Nasal 50 mcg NS DAILY 10/08/16 06/02/17 [Flonase] Montelukast [Singulair] 10 mg PO HS 10/08/16 06/02/17 metFORMIN [Glucophage] 500 mg PO BIDWM 10/08/16 06/02/17 Fluticasone/Salmeterol [Advair 1 puff IH BID 03/17/17 06/02/17 500-50 Diskus] Lisinopril/Hydrochlorothiazide 1 tab PO DAILY 03/17/17 06/02/17 [Zestoretic 20-25 mg Tablet] Naproxen Sodium [Aleve] 220 mg PO BID PRN 06/02/17 06/02/17 Previous Rx's Medication Instructions Recorded Albuterol Sulfate [Ventolin Hfa] 2 puff IH Q4H PRN #2 hfa.aer.ad 10/12/16 Ipratropium/Albuterol Neb [Duoneb] 3 ml IH Q4HR 30 Days inhsol 10/12/16 Amoxicillin 875 mg PO BID #20 tablet 08/23/17 Benzonatate [Tessalon] 200 mg PO TID PRN #30 capsule 08/23/17 Guaifenesin [Mucinex] 600 mg PO BID #20 tab.er.12h 08/23/17 Ketorolac [Toradol] 10 mg PO Q6HR PRN #10 tablet 11/08/17 predniSONE [PredniSONE] 20 mg PO BID #10 tablet 11/08/17 Allergies Allergy/AdvReac Type Severity Reaction Status Date / Time No Known Allergies Allergy Verified 06/02/17 09:03 All systems ED: reviewed and negative except as stated. Constitutional: Denies: fever, chills, weakness ENT ED: Reports: congestion. Denies: throat pain, dental pain, dysphagia Cardiovascular: Reports: dyspnea on exertion. Denies: chest pain, palpitations , edema Respiratory: Reports: cough, dyspnea, wheezes, sputum production. Denies: hemoptysis, stridor Gastrointestinal: Denies: abdominal pain, nausea, vomiting Genitourinary: Denies: urgency, dysuria Musculoskeletal: Denies: back pain, neck pain Integumentary: Denies: rash Neurological: Denies: headache Past Medical History - Past Medical History Attestation: Yes The following information was validated with the patient. Source: patient, old records reviewed Medical history: Reports: arthritis, asthma, diabetes, GERD, hypertension Surgical history: Reports: appendectomy, breast surgery, , cataract, cholecystectomy, hysterectomy Psychiatric history: Reports: no psych history - Social History Smoking Status: Never smoker Smokeless Tobacco Status: No Alcohol use: Reports: none Drug use: Reports: none Physical Exam - General Limitations: no limitations General appearance: alert, in distress (mild respiratory) - Head Head exam: atraumatic, normocephalic, normal inspection - Eye Eye exam: Present: normal appearance, PERRL, EOMI - ENT ENT exam: normal exam, normal oropharynx, mucous membranes moist - Neck Neck exam: Present: normal inspection, full ROM, trachea midline - Chest Chest inspection: Present: normal inspection, symmetric chest wall rise - Respiratory Respiratory exam: Present: respiratory distress (Mild ), wheezes (Diffuse moderate). Absent: accessory muscle use, prolonged expiratory phase - Cardiovascular Cardiovascular exam: Present: normal rhythm, tachycardia, normal heart sounds - Abdominal Exam Abdominal exam: Present: soft, Non-Tender. Absent: tenderness, distention, guarding, rebound, rigidity - Extremities Exam Extremities exam: Present: normal inspection, full ROM. Absent: tenderness, pedal edema - Neurological Exam Neurological exam: Present: alert, oriented X3 - Skin Skin exam: Present: warm, dry, intact, normal color Course - Reevaluation(s) Reevaluation #1: Patient's chest x-ray demonstrates no acute process. The patient was given a DuoNeb's as well as prednisone she states she is feeling much better at this time she is in no respiratory distress but she still has an mild amount of wheezing. We will prescribe another albuterol nebulizer and likely discharge the patient home. Time: 12:42 Vital Signs Temperature 97.8 F 02/17/18 11:42 Pulse Rate 109 02/17/18 11:42 Respiratory Rate 16 02/17/18 11:42 Blood Pressure 178/78 02/17/18 11:42 O2 Sat by Pulse Oximetry 94 02/17/18 11:42 Temperature 97.8 F 02/17/18 11:53 Pulse Rate 98 02/17/18 13:10 Respiratory Rate 20 02/17/18 13:10 Blood Pressure 174/75 02/17/18 13:10 O2 Sat by Pulse Oximetry 96 02/17/18 13:10 Oxygen Delivery Oxygen Delivery Nasal Cannula Shortness of Breath/Dyspnea - [facility] Narrative Medical decision making narrative: Patient's workup in the emergency department demonstrates no acute process on chest x-ray. Patient was given 3 duo nebs and steroids here in the emergency department. She was also given a repeat albuterol due to increase wheezing after reevaluation. The patient states she is feeling better. Upon ambulance the patient on the emergency department the patient became mildly hypoxic. We will admit the patient to the hospital at this time for likely repeat nebulizers , continued steroid therapy and likely observation. Patient accepted by Dr. Quinn. - Radiology Data Radiology results reviewed: Yes I reviewed the patient's radiology results. Chest X-Ray 02/17/18 11:51 IMPRESSION: No acute cardiopulmonary process is identified. D/ / Efren Hoffman MD / Efren Hoffman MD Interpreting Provider: Efren Hoffman MD - EKG Data EKG attestation: Yes I reviewed and interpreted this EKG. EKG results narrative: Heart rate 108 beats for minute. Sinus tachycardia. Mild ST depression noted in V5 and V6, EKG identical including the ST depression from 03/13/2017. No acute changes noted with the exception of the tachycardia.
--- NOTE | 2018-02-17 12:38 | Emergency Department Note ---
Disposition Clinical Impression: Asthma exacerbation Qualifiers: Asthma severity: moderate Asthma persistence: unspecified Qualified Code(s): J45.901 - Unspecified asthma with (acute) exacerbation Disposition: Still a Patient Forms: ED Satisfaction Letter General Adult HPI - General Chief complaint: ED Shortness of Breath/Dyspnea Stated complaint: YARA/cough Time Seen by Provider: 02/17/18 11:46 Source: patient Mode of arrival: ambulatory Limitations: no limitations - History of Present Illness Pain Scale: 4 - Related Data Home Medications Medication Instructions Recorded Confirmed Amlodipine Besylate 10 mg PO DAILY 10/08/16 06/02/17 Cetirizine HCl [Zyrtec] 10 mg PO DAILY 10/08/16 06/02/17 Fluticasone Propionate Nasal 50 mcg NS DAILY 10/08/16 06/02/17 [Flonase] Montelukast [Singulair] 10 mg PO HS 10/08/16 06/02/17 metFORMIN [Glucophage] 500 mg PO BIDWM 10/08/16 06/02/17 Fluticasone/Salmeterol [Advair 1 puff IH BID 03/17/17 06/02/17 500-50 Diskus] Lisinopril/Hydrochlorothiazide 1 tab PO DAILY 03/17/17 06/02/17 [Zestoretic 20-25 mg Tablet] Naproxen Sodium [Aleve] 220 mg PO BID PRN 06/02/17 06/02/17 Previous Rx's Medication Instructions Recorded Albuterol Sulfate [Ventolin Hfa] 2 puff IH Q4H PRN #2 hfa.aer.ad 10/12/16 Ipratropium/Albuterol Neb [Duoneb] 3 ml IH Q4HR 30 Days inhsol 10/12/16 Amoxicillin 875 mg PO BID #20 tablet 08/23/17 Benzonatate [Tessalon] 200 mg PO TID PRN #30 capsule 08/23/17 Guaifenesin [Mucinex] 600 mg PO BID #20 tab.er.12h 08/23/17 Ketorolac [Toradol] 10 mg PO Q6HR PRN #10 tablet 11/08/17 predniSONE [PredniSONE] 20 mg PO BID #10 tablet 11/08/17 Allergies Allergy/AdvReac Type Severity Reaction Status Date / Time No Known Allergies Allergy Verified 06/02/17 09:03 Constitutional: Denies: fever, chills, weakness ENT ED: Reports: congestion. Denies: throat pain, dental pain, dysphagia Cardiovascular: Reports: dyspnea on exertion. Denies: chest pain, palpitations , edema Respiratory: Reports: cough, dyspnea, wheezes, sputum production. Denies: hemoptysis, stridor Gastrointestinal: Denies: abdominal pain, nausea, vomiting Genitourinary: Denies: urgency, dysuria Musculoskeletal: Denies: back pain, neck pain Integumentary: Denies: rash Neurological: Denies: headache Past Medical History - Past Medical History Medical history: Reports: arthritis, asthma, diabetes, GERD, hypertension Surgical history: Reports: appendectomy, breast surgery, , cataract, cholecystectomy, hysterectomy Psychiatric history: Reports: no psych history - Social History Smoking Status: Never smoker Smokeless Tobacco Status: No Alcohol use: Reports: none Drug use: Reports: none Physical Exam - General Limitations: no limitations General appearance: alert, in distress (mild respiratory) Course Vital Signs Temperature 97.8 F 02/17/18 11:42 Pulse Rate 109 02/17/18 11:42 Respiratory Rate 16 02/17/18 11:42 Blood Pressure 178/78 02/17/18 11:42 O2 Sat by Pulse Oximetry 94 02/17/18 11:42 Temperature 97.8 F 02/17/18 11:53 Pulse Rate 109 02/17/18 11:53 Respiratory Rate 22 02/17/18 12:08 Blood Pressure 178/78 02/17/18 11:53 O2 Sat by Pulse Oximetry 99 02/17/18 12:08 Oxygen Delivery Oxygen Delivery Room Air Attestation Statement - Attestation Attestation: I examined this patient and my medical decision-making was reviewed with the Resident Physician. I agree with the documented findings, disposition and treatment plan as described except to the extent set forth below. 72 year old female presents to the ED with complaints of astham excerbation and states taht she follows krery Pelayo and that in october she had a bronchoplasty proecudre to help her with her astham which has improved it grealty and this is the first attack she has had since the proceudre when before she would have an attack almonst every other day. PAtinet denies produtive cough and states taht she parsons snot waear supplemental oxygen. WE will do breathing treatents and re-evaluate.
[2018-02-17] MEDS ORDERED: Albuterol 2.5 MG/3 ML NEBULIZER IH ONE (12:41)
[2018-02-17] MEDS ORDERED: Naloxone 0.4 MG/ML INJ IVP PRN (14:00)
[2018-02-17] MEDS ORDERED: Albuterol 2.5 MG/3 ML NEBULIZER IH PRN (14:03)
[2018-02-17] MEDS ORDERED: Loratadine 10 MG TABLET PO PRN (14:05)
--- NOTE | 2018-02-17 14:10 | Internal Med History&Physical ---
Date of Encounter: 02/17/18 Time of Encounter: 13:50 Internal Medicine - H&P: HPI Chief complaint: SOB History of present illness: Ms. Costello is a 72 year old female with past medical history of asthma, hypertension presented to the ED with 3 day history of shortness of breath. She states that she was at her son's place on Thursday who had mild bronchitis. Since then, she developed progressively worsening cough associated with sputum production. However she denies fever/chills or N/V. Denies chest pain, orthopnea, PND, lower leg swelling. No GI/ symptoms. Tried nebulizer at home multiple times without relief. In the ED, she was tachycardic and hypertensive requiring 2 L of O2. After the nebs and steroid, she felt slightly better but still had significant wheezing along with hypoxia on ambulation. CXR no infiltrate. Admitted for further management. Past Med Surg Social Fam HX - Past Medical History Attestation: Yes The following information was validated with the patient. Medical history: arthritis, asthma, diabetes, GERD, hypertension Additional medical history: sleep apnea Psychiatric history: no psych history - Past Surgical History Surgical History: appendectomy, breast surgery, , cataract, cholecystectomy, hysterectomy Additional surgical history: laprascopy - Social History Smoking Status: Never smoker Smokeless Tobacco Status: No Alcohol use: none Drug use: none - Family History Father Hx Family Cancer: Yes (colon cancer) Internal Medicine - H&P: Meds Amlodipine Besylate 10 mg PO DAILY 10/08/16 [History] Cetirizine HCl [Zyrtec] 10 mg PO DAILY PRN 10/08/16 [History] Fluticasone Propionate Nasal [Flonase] 50 mcg NS DAILY 10/08/16 [History] Montelukast [Singulair] 10 mg PO HS 10/08/16 [History] metFORMIN [Glucophage] 500 mg PO BIDWM 10/08/16 [History] Albuterol Sulfate [Ventolin Hfa] 2 puff IH Q4H PRN #2 hfa.aer.ad 10/12/16 [Rx] Fluticasone/Salmeterol [Advair 500-50 Diskus] 1 puff IH BID 03/17/17 [History] Lisinopril/Hydrochlorothiazide [Zestoretic 20-25 mg Tablet] 1 tab PO DAILY 03/17 [History] Naproxen Sodium [Aleve] 220 mg PO BID PRN 06/02/17 [History] Guaifenesin [Mucinex] 600 mg PO BID PRN 02/17/18 [History] Ipratropium/Albuterol Neb [Duoneb] 3 ml IH Q4HR PRN 02/17/18 [History] 3 Allergy/AdvReac Type Severity Reaction Status Date / Time No Known Allergies Allergy Verified 02/17/18 13:58 All Systems PM: A 10-system review of systems was performed and is negative for pertinent findings except as documented above in the HPI. - Constitutional Vitals: Temp Pulse Resp BP Pulse Ox 97.8 F 98 20 174/75 96 02/17/18 11:53 02/17/18 13:10 02/17/18 13:10 02/17/18 13:10 02/17/18 13:10 Exam: General: Alert and oriented, mild distress but able to speak in full sentences HEENT:EOM, pupils equal, round, and reactive. Cardiovascular:Normal S1 & S2, tachycardic Lungs: Diffuse wheezing bilaterally. No rhonchi. Abdomen:Soft, non-tender, no rigidity. Extremities:No deformity, no edema or tenderness, no joint swelling. Neurological:Normal cognition and motor skills. Skin:Normal color, no rash, no lesions. Pulses:Carotid and radial pulses normal +2. Rest of the physical exam is non-contributory - Assessment and plan (1) Asthma exacerbation Current Visit: Yes Status: Acute Assessment and plan: Likely secondary to viral bronchitis, refractory to initial treatment. Chest x-ray clear of any infiltrate. Steroids, bronchodilators, antitussive Resume home meds and inhalers. Qualifiers: Asthma severity: moderate Asthma persistence: unspecified Qualified Code( s): J45.901 - Unspecified asthma with (acute) exacerbation (2) Hypertension Current Visit: Yes Status: Acute Assessment and plan: Resume home meds. Qualifiers: Hypertension type: essential hypertension Qualified Code(s): I10 - Essential (primary) hypertension (3) Diabetes Current Visit: Yes Status: Acute Assessment and plan: Patient likely to be discharged tomorrow if continues to improve. Therefore we will continue metformin inpatient. Qualifiers: Diabetes mellitus type: type 2 Diabetes mellitus shelter insulin use: without shelter use Diabetes mellitus complication status: with unspecified complications Qualified Code(s): E11.8 - Type 2 diabetes mellitus with unspecified complications - Time Spent With Patient Total time spent is greater than 50% in coordination of care (as documented) at patient's floor/unit and/or counseling patient:
[2018-02-17] MEDS: Albuterol 2.5 MG/3 ML NEBULIZER IH SCH ×3 (16:00→23:26)
[2018-02-17] MEDS: *HR* Metformin 500 MG TABLET PO SCH (17:54)
[2018-02-17] MEDS: Budesonide/Formoterol 160/4.5 MDI IH SCH (19:34)
[2018-02-17] MEDS ORDERED: amLODIPine 5 MG TABLET PO SCH (20:44)
[2018-02-17] MEDS: amLODIPine 5 MG TABLET PO SCH (21:16)
[2018-02-18 01:55] LABS: Basophils % 0.2 %; Eosinophils % 0.1 %; Hematocrit 33.4 % (35.3-44.9); Hemoglobin 11.3 g/dL (11.5-15.4); Immature Granulocytes % 1.6 % (0-4); Lymphocytes # 1.6 K/mcL (0.6-4.6); Lymphocytes % 10.2 %; Mean Corpuscular HGB Conc 33.8 g/dL (31.6-35.5); Mean Corpuscular Hemoglobin 28.6 pg (28.0-33.3); Mean Corpuscular Volume 84.6 fL (83.0-100.0); Mean Platelet Volume 9.9 fL (9.4-12.4); Monocytes % 6.5 %; Neutrophils # 13.1 K/mcL (1.6-8.9); Platelet Count 327 K/mcL (140-400); Red Blood Count 3.95 M/mcL (3.82-4.97); Segmented Neutrophils % 81.4 %
[2018-02-18 02:12] LABS: BUN/Creatinine Ratio 20 (6-26); Blood Urea Nitrogen 20 mg/dL (8-23); Calcium 10.4 mg/dL (8.6-10.3); Carbon Dioxide 25 mEq/L (23-29); Chloride 102 mEq/L (98-107); Glucose 237 mg/dL (70-105); Osmolality,Calculated 294 (280-300); Sodium 137 mEq/L (136-145); eGFR For Non-African Americans 55 (> 60)
[2018-02-18] MEDS: Albuterol 2.5 MG/3 ML NEBULIZER IH SCH ×5 (03:41→20:12)
[2018-02-18] MEDS: Budesonide/Formoterol 160/4.5 MDI IH SCH ×2 (07:18→20:12)
[2018-02-18] MEDS: Fluticasone Propionate Nasal 50 MCG/SPRAY BOTTLE NS SCH (08:50)
[2018-02-18] MEDS: *HR* Metformin 500 MG TABLET PO SCH (08:52)
[2018-02-18] MEDS: amLODIPine 5 MG TABLET PO SCH (08:52)
[2018-02-18] MEDS ORDERED: amLODIPine 5 MG TABLET PO SCH (09:00)
[2018-02-18] MEDS: Acetaminophen 325 MG TABLET PO PRN (12:13)
[2018-02-18] MEDS ORDERED: Ringers Solution, Lactated 1,000 ML IVC SCH (13:45)
[2018-02-18] MEDS ORDERED: predniSONE 20 MG TABLET PO SCH (13:45)
[2018-02-18] MEDS ORDERED: D5% in Water 1,000 ML IVC PRN (13:55)
[2018-02-18] MEDS ORDERED: Dextrose Gel 15 GM/37.5 ML TUBE PO PRN ×2 (13:55)
[2018-02-18] MEDS ORDERED: *HR* Dextrose 50 % in Water (Syg) 50 ML SYRINGE IVP PRN (13:55)
[2018-02-18] MEDS: Insulin LISPRO 300 UNITS/3 ML VIAL SQ SCH ×2 (16:59→21:29)
[2018-02-18] MEDS: Benzonatate 100 MG CAPSULE PO PRN (16:59)
[2018-02-18] MEDS: MethylPREDNISolone 40 MG/ML VIAL IVP SCH ×2 (16:59→23:35)
--- NOTE | 2018-02-18 18:01 | Internal Med Progress Note ---
Date of Encounter: 02/18/18 Time of Encounter: 13:20 - Assessment and plan (1) Asthma exacerbation Current Visit: Yes Status: Acute Assessment and plan: Continues to have wheezing, exertional dyspnea and cough. Chest x-ray shows no evidence of pneumonia. Start IV steroids, continue bronchodilator nebulization , start when necessary antitussives; continue inhaled corticosteroids and Singulair. Telemetry monitoring and supplemental oxygen when necessary. Qualifiers: Asthma severity: moderate Asthma persistence: persistent Qualified Code(s ): J45.41 - Moderate persistent asthma with (acute) exacerbation (2) Hypertension Current Visit: Yes Status: Chronic Assessment and plan: Blood pressure fairly controlled. Hold ROSE inhibitor, diuretic due to renal dysfunction. Continue Norvasc. Qualifiers: Hypertension type: essential hypertension Qualified Code(s): I10 - Essential (primary) hypertension (3) Diabetes Current Visit: Yes Status: Chronic Assessment and plan: Blood sugars well controlled. At risk for steroid-induced hyperglycemia. Hold metformin for now. Continue Accu-Chek blood glucose monitoring with sliding scale insulin as needed. Diabetic diet. 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 bug exterminator insulin use: without bed bug exterminator use Diabetes mellitus complication status: with unspecified complications Qualified Code(s): E11.8 - Type 2 diabetes mellitus with unspecified complications (4) GERD (gastroesophageal reflux disease) Current Visit: Yes Status: Chronic Qualifiers: Esophagitis presence: esophagitis presence not specified Qualified Code(s) : K21.9 - Gastro-esophageal reflux disease without esophagitis - Time Spent With Patient Total time spent is greater than 50% in coordination of care (as documented) at patient's floor/unit and/or counseling patient: - Subjective Interval history: feels better than yesterday but continues to have persistent hacking dry cough and dyspnea on exertion, requiring supplemental O2; no fever/chills; - Constitutional Vitals: Temp Pulse Resp BP Pulse Ox 97.5 F L 75 16 134/64 97 02/18/18 16:06 02/18/18 16:06 02/18/18 16:06 02/18/18 16:06 02/18/18 16:06 General appearance: Present: mild distress, A&O X 3, obese, answers questions appropriately - Respiratory Respiratory exam: Present: CTAB (coarse breath sounds B/L), prolonged expiratory phase, rhonchi, wheezes (B/L). Absent: accessory muscle use, rales - Cardiovascular Cardiovascular exam: Present: RRR, +S1, +S2. Absent: diastolic murmur, gallop, rubs, systolic murmur - GI/Abdominal GI/Abdominal exam: Present: normal bowel sounds, soft, no peritoneal signs. Absent: distended, tenderness - Extremities Exam Extremities exam: Present: full ROM, warm, radial pulses palpable and symmetrical. Absent: calf tenderness, cyanotic, pedal edema - Neurological Exam Neurological exam: Present: CN II-XII intact, oriented X3, no focal deficits. Absent: pronater drift, facial droop, speech deficit Internal Medicine: Result - Labs CBC & Chem 7: 02/19/18 01:23 02/19/18 01:23 Labs: Short CBC 02/18/18 Range/Units 01:32 WBC 16.0 H (4.3-11.1) K/mcL Hgb 11.3 L (11.5-15.4) g/dL Hct 33.4 L (35.3-44.9) % Plt Count 327 (140-400) K/mcL Neutrophils # 13.1 H (1.6-8.9) K/mcL BMP 02/18/18 01:32 Sodium 137 Potassium 4.0 Chloride 102 Carbon Dioxide 25 BUN 20 Creatinine 0.99 Glucose 237 H Calcium 10.4 H Consult Discharge Plan - Plan Referrals: Bob Stokes Jr, MD [Primary Care Provider] -
[2018-02-18] MEDS: Ondansetron 4 MG/2 ML VIAL IVP PRN (23:58)
[2018-02-19] MEDS: Albuterol 2.5 MG/3 ML NEBULIZER IH SCH ×6 (00:15→22:30)
[2018-02-19 01:49] LABS: Basophils % 0.3 %; Eosinophils # 0.6 K/mcL (0.0-0.6); Eosinophils % 4.2 %; Hematocrit 35.1 % (35.3-44.9); Hemoglobin 11.6 g/dL (11.5-15.4); Immature Granulocytes % 0.8 % (0-4); Lymphocytes # 2.1 K/mcL (0.6-4.6); Lymphocytes % 16.4 %; Mean Corpuscular Hemoglobin 28.6 pg (28.0-33.3); Mean Corpuscular Volume 86.5 fL (83.0-100.0); Monocytes # 0.5 K/mcL (0.0-1.3); Monocytes % 3.5 %; Neutrophils # 9.7 K/mcL (1.6-8.9); Platelet Count 319 K/mcL (140-400); Red Blood Count 4.06 M/mcL (3.82-4.97); Segmented Neutrophils % 74.8 %
[2018-02-19 02:10] LABS: BUN/Creatinine Ratio 25 (6-26); Blood Urea Nitrogen 25 mg/dL (8-23); Calcium 10.1 mg/dL (8.6-10.3); Carbon Dioxide 24 mEq/L (23-29); Chloride 101 mEq/L (98-107); Glucose 233 mg/dL (70-105); Osmolality,Calculated 290 (280-300); Potassium 3.8 mEq/L (3.5-5.1); Sodium 134 mEq/L (136-145); eGFR For Non-African Americans 54 (> 60)
[2018-02-19] MEDS: Budesonide/Formoterol 160/4.5 MDI IH SCH ×2 (07:42→22:30)
[2018-02-19] MEDS: amLODIPine 5 MG TABLET PO SCH (09:16)
[2018-02-19] MEDS: MethylPREDNISolone 40 MG/ML VIAL IVP SCH ×3 (09:16→20:01)
[2018-02-19] MEDS: Insulin LISPRO 300 UNITS/3 ML VIAL SQ SCH ×4 (09:17→22:55)
[2018-02-19] MEDS: Fluticasone Propionate Nasal 50 MCG/SPRAY BOTTLE NS SCH (09:17)
[2018-02-19] MEDS: Benzonatate 100 MG CAPSULE PO PRN (12:41)
--- NOTE | 2018-02-19 16:10 | Electrocardiograph Report ---
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
[2018-02-19] MEDS: Acetaminophen 325 MG TABLET PO PRN (16:41)
--- NOTE | 2018-02-19 17:48 | Internal Med Progress Note ---
Date of Encounter: 02/19/18 Time of Encounter: 13:40 - Assessment and plan (1) Asthma exacerbation Current Visit: Yes Status: Acute Assessment and plan: Continues to have cough. Chest x-ray shows no evidence of pneumonia. Taper down IV steroids as tolerated, continue bronchodilator nebulization, when necessary antitussives; continue inhaled corticosteroids and Singulair. Telemetry monitoring and supplemental oxygen when necessary. Qualifiers: Asthma severity: moderate Asthma persistence: persistent Qualified Code(s ): J45.41 - Moderate persistent asthma with (acute) exacerbation (2) Hypertension Current Visit: Yes Status: Chronic Assessment and plan: Blood pressure fairly controlled. continue to Hold ROSE inhibitor, diuretic due to renal dysfunction. Continue Norvasc. Qualifiers: Hypertension type: essential hypertension Qualified Code(s): I10 - Essential (primary) hypertension (3) Diabetes Current Visit: Yes Status: Chronic Assessment and plan: Blood sugars elevated; At risk for steroid-induced hyperglycemia. Held metformin. Continue Accu-Chek blood glucose monitoring, increase sliding scale insulin . Diabetic diet. 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 insulin use: without adjunct faculty for medical terminology use Diabetes mellitus complication status: with unspecified complications Qualified Code(s): E11.8 - Type 2 diabetes mellitus with unspecified complications (4) GERD (gastroesophageal reflux disease) Current Visit: Yes Status: Chronic Qualifiers: Esophagitis presence: esophagitis presence not specified Qualified Code(s) : K21.9 - Gastro-esophageal reflux disease without esophagitis - Time Spent With Patient Total time spent is greater than 50% in coordination of care (as documented) at patient's floor/unit and/or counseling patient: - Subjective Interval history: somewhat improved but continues to have hacking cough with chest and abdominal muscle pain; no fever/chills, requiring O2 on ambulation; - Constitutional Vitals: Temp Pulse Resp BP Pulse Ox 98.3 F 97 16 153/72 98 02/19/18 15:05 02/19/18 15:05 02/19/18 16:00 02/19/18 15:05 02/19/18 16:00 General appearance: Present: mild distress, A&O X 3, obese, answers questions appropriately - Respiratory Respiratory exam: Present: CTAB (coarse breath sounds B/L), rhonchi (B/L scattered rhonchi). Absent: accessory muscle use, rales, wheezes - Cardiovascular Cardiovascular exam: Present: RRR, +S1, +S2. Absent: diastolic murmur, gallop, rubs, systolic murmur - GI/Abdominal GI/Abdominal exam: Present: normal bowel sounds, soft, no peritoneal signs. Absent: distended, tenderness Internal Medicine: Result - Labs CBC & Chem 7: 02/19/18 01:23 02/20/18 00:53 Labs: Short CBC 02/19/18 Range/Units 01:23 WBC 13.0 H (4.3-11.1) K/mcL Hgb 11.6 (11.5-15.4) g/dL Hct 35.1 L (35.3-44.9) % Plt Count 319 (140-400) K/mcL Neutrophils # 9.7 H (1.6-8.9) K/mcL BMP 02/19/18 01:23 Sodium 134 L Potassium 3.8 Chloride 101 Carbon Dioxide 24 BUN 25 H Creatinine 1.01 Glucose 233 H Calcium 10.1 Consult Discharge Plan - Plan Referrals: Bob Stokes Jr, MD [Primary Care Provider] -
[2018-02-19] MEDS: Ondansetron 4 MG/2 ML VIAL IVP PRN (22:36)
[2018-02-20] MEDS: Albuterol 2.5 MG/3 ML NEBULIZER IH SCH ×7 (00:53→23:31)
[2018-02-20] MEDS: MethylPREDNISolone 40 MG/ML VIAL IVP SCH (05:25)
[2018-02-20] MEDS: Benzonatate 100 MG CAPSULE PO PRN (05:33)
[2018-02-20] MEDS: Budesonide/Formoterol 160/4.5 MDI IH SCH ×2 (07:37→20:23)
[2018-02-20] MEDS: Insulin LISPRO 300 UNITS/3 ML VIAL SQ SCH ×4 (08:05→22:07)
[2018-02-20] MEDS: Fluticasone Propionate Nasal 50 MCG/SPRAY BOTTLE NS SCH (08:06)
[2018-02-20] MEDS: amLODIPine 5 MG TABLET PO SCH (08:06)
[2018-02-20] MEDS ORDERED: Ringers Solution, Lactated 1,000 ML IVC SCH (11:45)
[2018-02-20] MEDS ORDERED: Azithromycin 250 MG TABLET PO SCH (17:30)
--- NOTE | 2018-02-20 17:32 | Internal Med Progress Note ---
Date of Encounter: 02/20/18 Time of Encounter: 12:40 - Assessment and plan (1) Asthma exacerbation Current Visit: Yes Status: Acute Assessment and plan: Continues to have cough and nasal congestion. Chest x-ray shows no evidence of pneumonia. Taper down IV steroids as tolerated, continue bronchodilator nebulization, when necessary antitussives; add Azithromycin and nasal saline; continue inhaled corticosteroids and Singulair. Telemetry monitoring and supplemental oxygen when necessary. Qualifiers: Asthma severity: moderate Asthma persistence: persistent Qualified Code(s ): J45.41 - Moderate persistent asthma with (acute) exacerbation (2) Hypertension Current Visit: Yes Status: Chronic Qualifiers: Hypertension type: essential hypertension Qualified Code(s): I10 - Essential (primary) hypertension (3) Diabetes Current Visit: Yes Status: Chronic Assessment and plan: Blood sugars elevated; has steroid-induced hyperglycemia. Held metformin. Continue Accu-Chek blood glucose monitoring, add basal insulin, increase sliding scale insulin . Diabetic diet. Qualifiers: Diabetes mellitus type: type 2 Diabetes mellitus mcc insulin use: without mcc use Diabetes mellitus complication status: with unspecified complications Qualified Code(s): E11.8 - Type 2 diabetes mellitus with unspecified complications (4) GERD (gastroesophageal reflux disease) Current Visit: Yes Status: Chronic Qualifiers: Esophagitis presence: esophagitis presence not specified Qualified Code(s) : K21.9 - Gastro-esophageal reflux disease without esophagitis (5) LIDIA (acute kidney injury) Current Visit: Yes Status: Acute Assessment and plan: likely from hyperglycemia and acute illness; start IV hydration; serum creatinine noted to be normal at baseline, 1.36 today; continue to hold ACEI, diuretic and Metformin; - Time Spent With Patient Total time spent is greater than 50% in coordination of care (as documented) at patient's floor/unit and/or counseling patient: - Subjective Interval history: Improving slowly. Continues to have hacking cough causing chest and abdominal muscle pain. Tolerates diet, no longer requiring supplemental oxygen. Patient is able to complete long sentences and is very talkative, although she still has persistent cough, nasal congestion and headache. - Constitutional Vitals: Temp Pulse Resp BP Pulse Ox 98.4 F 62 17 133/70 96 02/20/18 16:04 02/20/18 16:04 02/20/18 16:04 02/20/18 16:04 02/20/18 16:04 General appearance: Present: A&O X 3, obese, answers questions appropriately - Respiratory Respiratory exam: Present: CTAB (coarse breath sounds B/L), wheezes (present but improving). Absent: accessory muscle use, rales, rhonchi - Cardiovascular Cardiovascular exam: Present: RRR, +S1, +S2. Absent: diastolic murmur, gallop, rubs, systolic murmur - GI/Abdominal GI/Abdominal exam: Present: normal bowel sounds, soft, no peritoneal signs. Absent: distended, tenderness Internal Medicine: Result - Labs CBC & Chem 7: 02/19/18 01:23 02/20/18 00:53 Labs: BMP 02/20/18 00:53 Sodium 133 L Potassium 4.0 Chloride 97 L Carbon Dioxide 24 BUN 37 H Creatinine 1.36 H Glucose 249 H Calcium 10.0 Consult Discharge Plan - Plan Referrals: Bob Stokes Jr, MD [Primary Care Provider] -
[2018-02-20] MEDS ORDERED: Saline Nasal Spray 44 ML BOTTLE NS PRN (17:36)
[2018-02-20] MEDS: Acetaminophen 325 MG TABLET PO PRN (19:01)
[2018-02-20] MEDS: Insulin DETEMIR 100 UNIT/ML X5UNITS SQ SCH (22:12)
[2018-02-21] MEDS: Albuterol 2.5 MG/3 ML NEBULIZER IH SCH ×3 (04:17→11:32)
[2018-02-21 06:09] LABS: BUN/Creatinine Ratio 31 (6-26); Blood Urea Nitrogen 32 mg/dL (8-23); Calcium 9.9 mg/dL (8.6-10.3); Carbon Dioxide 29 mEq/L (23-29); Chloride 104 mEq/L (98-107); Glucose 110 mg/dL (70-105); Osmolality,Calculated 298 (280-300); Potassium 3.7 mEq/L (3.5-5.1); Sodium 140 mEq/L (136-145); eGFR For Non-African Americans 53 (> 60)
[2018-02-21] MEDS: Budesonide/Formoterol 160/4.5 MDI IH SCH (08:08)
[2018-02-21 08:31] VITALS: BP 108/68
[2018-02-21] MEDS: Fluticasone Propionate Nasal 50 MCG/SPRAY BOTTLE NS SCH (08:35)
[2018-02-21] MEDS: Insulin LISPRO 300 UNITS/3 ML VIAL SQ SCH ×2 (08:35→12:29)
[2018-02-21] MEDS: amLODIPine 5 MG TABLET PO SCH (08:36)
[2018-02-21] MEDS: Insulin DETEMIR 100 UNIT/ML X5UNITS SQ SCH (08:36)
[2018-02-21] MEDS ORDERED: MethylPREDNISolone 40 MG/ML VIAL IVP SCH (09:00)
--- NOTE | 2018-02-21 10:56 | Discharge Summary ---
- NOTES TO OUTPATIENT PROVIDER Notes to Outpatient Provider: Acute asthma, LIDIA- improving Date of Encounter: 02/21/18 Time of Encounter: 10:54 - Discharge Diagnosis (1) Asthma exacerbation Priority: Primary Status: Acute Qualifiers: Asthma severity: moderate Asthma persistence: persistent Qualified Code(s ): J45.41 - Moderate persistent asthma with (acute) exacerbation (2) Hypertension Priority: Secondary Status: Chronic Qualifiers: Hypertension type: essential hypertension Qualified Code(s): I10 - Essential (primary) hypertension (3) Diabetes Priority: Secondary Status: Chronic Qualifiers: Diabetes mellitus type: type 2 Diabetes mellitus shelter insulin use: without shelter use Diabetes mellitus complication status: with unspecified complications Qualified Code(s): E11.8 - Type 2 diabetes mellitus with unspecified complications (4) GERD (gastroesophageal reflux disease) Priority: Secondary Status: Chronic Qualifiers: Esophagitis presence: esophagitis presence not specified Qualified Code(s) : K21.9 - Gastro-esophageal reflux disease without esophagitis (5) LIDIA (acute kidney injury) Priority: Primary Status: Acute Hospital course: Ms. Costello is a 72 year old female with the above medical problems, who was admitted with significant hacking cough and shortness of breath. She was noted to be in acute exacerbation of asthma, started on IV steroids, bronchodilators nebulization and supplemental oxygen. Chest x-ray showed no evidence of infiltrates. She improved slowly, still has some wheezing and intermittent cough, not requiring any supplemental oxygen, significantly better since admission. She was also started on oral azithromycin. Patient was noted to have mild acute kidney injury likely due to hyperglycemia and dehydration in the setting of use of ROSE inhibitor/diuretic/metformin at home. These medications are currently being held for at least 3 days post discharge. Serum creatinine is improved today. Patient is medically stable for discharge with outpatient pulmonology follow-up. Discharge discussed with: patient, nurse - Time Spent with Patient Total time spent providing and/or coordinating discharge services: Greater than 30 minutes (45 min) - Discharge Medications Prescriptions: Azithromycin [Zithromax] 500 mg PO Q24H #8 tablet Benzonatate [Tessalon] 100 mg PO TID PRN #20 capsule PRN Reason: Cough Blood Sugar Diagnostic [Blood Glucose Test Strip] 1 each ACHS #100 strip Lancets [Blood Lancets] 1 each ACHS #100 each predniSONE [PredniSONE] 40 mg PO DAILY #30 tablet Home Medications: Amlodipine Besylate 10 mg PO DAILY 10/08/16 [History] Cetirizine HCl [Zyrtec] 10 mg PO DAILY PRN 10/08/16 [History] Fluticasone Propionate Nasal [Flonase] 50 mcg NS DAILY 10/08/16 [History] Montelukast [Singulair] 10 mg PO HS 10/08/16 [History] Albuterol Sulfate [Ventolin Hfa] 2 puff IH Q4H PRN #2 hfa.aer.ad 10/12/16 [Rx] Fluticasone/Salmeterol [Advair 500-50 Diskus] 1 puff IH BID 03/17/17 [History] Guaifenesin [Mucinex] 600 mg PO BID PRN 02/17/18 [History] Ipratropium/Albuterol Neb [Duoneb] 3 ml IH Q4HR PRN 02/17/18 [History] Acetaminophen [Tylenol] 650 mg PO Q6HR PRN tablet 02/21/18 [Rx] Azithromycin [Zithromax] 500 mg PO Q24H #8 tablet 02/21/18 [Rx] Benzonatate [Tessalon] 100 mg PO TID PRN #20 capsule 02/21/18 [Rx] Blood Sugar Diagnostic [Blood Glucose Test Strip] 1 each ACHS #100 strip [Rx] Lancets [Blood Lancets] 1 each ACHS #100 each 02/21/18 [Rx] predniSONE [PredniSONE] 40 mg PO DAILY #30 tablet 02/21/18 [Rx] Lisinopril/Hydrochlorothiazide [Zestoretic 20-25 mg Tablet] 1 tab PO DAILY #0 [Rx] metFORMIN [Glucophage] 500 mg PO BIDWM #0 02/25/18 [Rx] Allergies/Adverse Reactions: 3 Allergy/AdvReac Type Severity Reaction Status Date / Time No Known Allergies Allergy Verified 02/17/18 13:58 Date of admission: 02/17/18 13:50 Primary care physician: Bob Stokes Jr, MD Discharging clinician: Sarah Lund Anticipated date of discharge: 02/21/18 - Constitutional Vitals: Temp Pulse Resp BP Pulse Ox 98.4 F 56 17 108/68 95 02/21/18 06:29 02/21/18 06:29 02/21/18 06:29 02/21/18 06:29 02/21/18 07:45 General appearance: Present: A&O X 3, obese, answers questions appropriately - Respiratory Respiratory exam: Present: CTAB, wheezes (B/L expiratory wheezing- mild). Absent: accessory muscle use, rales, rhonchi - Patient Status Disposition: Home, Self-Care Condition: Fair Functional capacity at discharge: independent ambulation Overall status at discharge: patient is progressing back to baseline - Discharge Instructions Follow Up With: Bob Stokes Jr, MD [Primary Care Provider] - Additional Instructions: F/up with PCP in 1-2 weeks F/up with Pulmonology in 2-3 weeks - Diet and Activity Activity: increase activity as tolerated Diet: diabetic diet, low fat, low cholesterol, low salt diet
[2018-02-21] MEDS: Acetaminophen 325 MG TABLET PO PRN (14:53)
== END 2018-02-21 16:15 | disposition home or self-care (01) ==
LOC: EMEROO 11:41 → 3NENU 11:41 → SUATTDRO 13:50 → 3NENU 14:28
PROVIDERS: ADMIT Internal Medicine; ATTEND Internal Medicine